=== PATIENT | female | born 1965 | race Caucasian/White ===

== ENCOUNTER 2017-03-01 07:30 | Emergency (ER) | payer MEDICARE, OTHER ==
[~2017-03-01 07:30] MED LIST: DIAZEPAM10 MG PO; GABA600T PO; HYDR-2766 PO
[2017-03-01 07:37] VITALS: BP 140/97
[2017-03-01] MEDS ORDERED: diazePAM 5 MG TABLET PO ONE (08:00)
[2017-03-01] MEDS ORDERED: HYDROcodone/APAP 5/325MG 1 TAB TABLET PO ONE (08:00)
[2017-03-01] MEDS ORDERED: KETOROLAC TROMETHAMINE 60 MG/2 ML INJ. IM ONE (08:00)
[2017-03-01] MEDS ORDERED: HYDR-971 PO (08:09)
--- NOTE | 2017-03-01 08:09 | PHYS DOC ---
Past Medical History Past Medical History: Unknown Additional Past Medical Histor: chronic back pain, muscle spasms, situational HTN Past Surgical History: Appendectomy, Hysterectomy, Tonsillectomy, Other Additional Past Surgical Histo: back surg NOS x2 (w/"cage") Alcohol Use: Occasionally Drug Use: None Adult General Chief Complaint Chief Complaint: LOWER BACK PAIN OR INJURY HPI HPI Patient is a 52 year old female presenting to the emergency department for evaluation of low back pain that radiates down the right leg started several days ago after doing some twisting and turning motion. She says it feels like a sharp pain that goes down the leg but she has no weakness numbness tingling or incontinence. Patient has had surgery on her back in 2003 but she does not remember the surgeon's name and cannot see the neurosurgeon anymore as he lost his license for drug abuse. Patient says that she has been in and out of pain management primary neurology but she says she has stopped trusting physicians and does not see any doctor at all currently. Somehow she has prescriptions for gabapentin and [place] and the source of these are unclear and she will not as close this. She is able to ambulate her and she is in no obvious distress with normal vital signs. Review of Systems Review of Systems Constitutional: Denies fever or chills [] GI: Denies abdominal pain, nausea, vomiting, bloody stools or diarrhea [] Musculoskeletal: + back pain. No joint pain [] Neurologic: Denies headache, focal weakness or sensory changes [] Current Medications Current Medications Current Medications Medications (Trade) Dose Ordered Sig/Maureen Start Time Stop Time Status Last Admin Dose Admin Acetaminophen/ Hydrocodone Bitart (Lortab 5/325) 2 tab 1X ONCE 03/01/17 08:00 03/01/17 08:01 DC 03/01/17 07:59 2 TAB Diazepam (Valium) 10 mg 1X ONCE 03/01/17 08:00 03/01/17 08:01 DC 03/01/17 07:59 10 MG Ketorolac Tromethamine (Toradol Im) 60 mg 1X ONCE 03/01/17 08:00 03/01/17 08:01 DC 03/01/17 07:59 60 MG Allergies Allergies Allergies Coded Allergies Type Severity Reaction Last Updated Verified lithium Allergy Severe toxicity 03/28/14 Yes metoprolol Allergy Intermediate 03/01/17 Yes tramadol Allergy Intermediate nausea/cramping 03/28/14 Yes Physical Exam Physical Exam Constitutional: Well developed, well nourished, no acute distress, non-toxic appearance. [] Cardiovascular:Heart rate regular rhythm, no murmur [] Lungs & Thorax: Bilateral breath sounds clear to auscultation [] Abdomen: Bowel sounds normal, soft, no tenderness, no masses, no pulsatile masses. [] Back: Positive right lumbar paraspinal tenderness to palpation. No midline tenderness. Extremities: No tenderness, no cyanosis, no clubbing, ROM intact, no edema. [] Neurologic: Alert and oriented X 3, normal motor function, normal sensory function, no focal deficits noted. [] Current Patient Data Vital Signs Vital Signs Date Time Temp Pulse Resp B/P (MAP) Pulse Ox O2 Delivery O2 Flow Rate FiO2 03/01/17 07:59 22 03/01/17 07:37 97.8 90 140/97 (111) 96 Room Air 97.8 EKG EKG [] Radiology/Procedures Radiology/Procedures Lumbar spine, 3 views, 03/01/2017: History: Low back pain radiating to the right hip Comparison is made to a study from 11/07/2013. There are bilateral pedicle screws at L3, L4, L5 and S1 attached to longitudinally oriented posterior fixation rods. Radiopaque disc spacers are present at L4-5 and L5-S1. There is bilateral posterolateral bone graft through this region. The anterior ends of the L3 pedicle screws appear to protrude slightly through the superior endplate of L3. These findings are unchanged since 11/07/2013. The vertebral alignment is anatomic. No acute fracture or dislocation is identified. There is moderate disc space narrowing at L2-3 and mild disc space narrowing at L1-2 with marginal spurring. IMPRESSION: 1. Stable posterior spinal fusion and instrumentation from L3 through S1. 2. No acute abnormality is detected. DICTATED and SIGNED BY: MICHELLE RAMOS MD DATE: 03/01/17 0827 Course & Med Decision Making Course & Med Decision Making Patient has symptoms consistent with right lumbar radiculopathy. She has no red flag signs or symptoms necessitating an emergent MRI. We'll treat symptoms get plain film x-ray at patient's request and reassess. Pain much improved and I told her that she needs to follow with a PCP for further evaluation and treatment. Patient aware and agreeable with plan for discharge and verbalized understanding of the need for short-term follow-up in the strict ER return precautions discussed including worsening pain fevers vomiting or other general concerns. Dragon Disclaimer Dragon Disclaimer This electronic medical record was generated, in whole or in part, using a voice recognition dictation system. Departure Departure Impression: Primary Impression: Back pain, chronic Additional Impression: Lumbar radiculopathy, right Disposition: 01 HOME, SELF-CARE Condition: GOOD Referrals: BRITTNY SANCHES MD Patient Instructions: Lumbosacral Radiculopathy Additional Instructions: TAKE 400MG OF IBUPROFEN EVERY 6 HOURS AND THE NORCO FOR BREAKTHROUGH PAIN. FOLLOW WITH A PCP DERIC. Scripts Hydrocodone/Apap 5-325 (NORCO 5-325 TABLET) 1 Each Tablet 1 TAB PO PRN Q6HRS Y for PAIN, #14 TAB 0 Refills Prov: JOHNNY JOHNS DO 03/01/17 Problem Qualifiers Primary Impression: Back pain, chronic Back pain location: low back pain Back pain laterality: right Sciatica presence: with sciatica Sciatica laterality: sciatica of right side Qualified Codes: M54.41 - Lumbago with sciatica, right side; G89.29 - Other chronic pain JOHNNY JOHNS DO Mar 01, 2017 08:09
--- NOTE | 2017-03-01 08:32 | RAD ---
Lumbar spine, 3 views, 03/01/2017: History: Low back pain radiating to the right hip Comparison is made to a study from 11/07/2013. There are bilateral pedicle screws at L3, L4, L5 and S1 attached to longitudinally oriented posterior fixation rods. Radiopaque disc spacers are present at L4-5 and L5-S1. There is bilateral posterolateral bone graft through this region. The anterior ends of the L3 pedicle screws appear to protrude slightly through the superior endplate of L3. These findings are unchanged since 11/07/2013. The vertebral alignment is anatomic. No acute fracture or dislocation is identified. There is moderate disc space narrowing at L2-3 and mild disc space narrowing at L1-2 with marginal spurring. IMPRESSION: 1. Stable posterior spinal fusion and instrumentation from L3 through S1. 2. No acute abnormality is detected.
== END 2017-03-01 09:07 | disposition home or self-care (01) ==
LOC: ER 07:30
DX: G89.29 Other chronic pain (principal); M54.41 Lumbago with sciatica, right side; M54.16 Radiculopathy, lumbar region; Z90.710 Acquired absence of both cervix and uterus; Z90.49 Acquired absence of other specified parts of digestive tract; Z88.5 Allergy status to narcotic agent; Z88.8 Allergy status to other drugs, medicaments and biological substances
CPT/HCPCS: 72100; 96372; 99284; J1885

== ENCOUNTER 2017-03-28 10:00 | Emergency (ER) | payer MEDICARE ==
[~2017-03-28] VITALS: Ht 175.3 cm; Wt 117.0 kg
[~2017-03-28 10:00] MED LIST changes: +HYDR-971 PO
[2017-03-28 10:04] VITALS: BP 160/94
[2017-03-28] MEDS ORDERED: CYCLOBENZAPRINE 10 MG TABLET. PO ONE (11:00)
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
--- NOTE | 2017-03-28 11:34 | RAD ---
AP and lateral thoracic spine radiographs 03/28/2017 Clinical history: Mid back pain post injury yesterday. AP, lateral and swimmer's lateral digital radiographs of the thoracic spine were obtained. Minimal S shaped curvature of the thoracolumbar spine is seen. Degenerative changes consisting of vertebral endplate sclerosis and minimal to mild anterior vertebral body osteophyte formation are seen throughout the thoracic disc spaces. No paravertebral soft tissue swelling is noted. Impression: No fracture or subluxation of the thoracic vertebra is seen.
--- NOTE | 2017-03-28 11:37 | RAD ---
AP and lateral lumbar spine radiographs 03/28/2017 Clinical history: Low back pain post injury yesterday. AP and 2 lateral digital radiographs of the lumbar spine were obtained. Comparison study is dated 03/01/2017. The alignment of the lumbar vertebrae is within normal limits. The patient is status post posterolateral fusion using pedicle screws and stabilizing rods and bone graft material extending from L3 to S1. The patient is status post laminectomy, discectomy and fusion using cagelike devices at L4-5 and L5-S1. No fracture or subluxation of the lumbar vertebrae is seen. Degenerative changes are seen involving the remaining lumbar disc spaces consisting of vertebral endplate sclerosis and minimal to mild anterior vertebral body osteophyte formation. Impression: Postsurgical and degenerative changes are seen involving the lumbar spine as outlined above. No fracture or subluxation is seen.
[2017-03-28] MEDS ORDERED: HYDR-971 PO (12:03)
[2017-03-28] MEDS ORDERED: CYCL10TA2 PO (12:03)
== END 2017-03-28 12:11 | disposition home or self-care (01) ==
LOC: ER 10:00
DX: G89.29 Other chronic pain (principal); M54.5 Low back pain; I10 Essential (primary) hypertension; Z88.6 Allergy status to analgesic agent; Z88.8 Allergy status to other drugs, medicaments and biological substances; V00.811A Fall from moving wheelchair (powered), initial encounter; Y93.89 Activity, other specified; Y99.8 Other external cause status; Y92.89 Other specified places as the place of occurrence of the external cause
CPT/HCPCS: 72072; 72100; 99284